=== PATIENT | female | born 1995 | race Two or more races ===

== ENCOUNTER 2023-06-09 02:30 | Emergency (ER) | payer MEDICAID, OTHER ==
[~2023-06-09] VITALS: Ht 167.6 cm; Wt 166.4 kg
[2023-06-09] MEDS ORDERED: PRED20TA2 PO (03:12)
[2023-06-09] MEDS ORDERED: ALBUAER3 IN (03:12)
[2023-06-09 03:21] VITALS: BP 119/74; PULSE 81; RESP 18; TEMP 98.6; O2SAT 99
== END 2023-06-09 03:29 | disposition home or self-care (01) ==
LOC: EDBD 02:30 → ER 02:36
DX: J45.901 Unspecified asthma with (acute) exacerbation (principal)
CPT/HCPCS: 93005

== ENCOUNTER 2025-05-24 10:41 | Outpatient (CLI) | payer MEDICAID ==
[~2025-05-24 10:41] MED LIST: ALBUAER3 IN; PRED20TA2 PO
== END 2025-05-24 17:00 | disposition home or self-care (01) ==
LOC: LAB 10:41
DX: Z32.00 Encounter for pregnancy test, result unknown (principal)
CPT/HCPCS: 36415; 84702